=== PATIENT | male | born 1995 | race Caucasian/White ===

== ENCOUNTER 2019-04-04 13:34 | Emergency (ER) | payer SELFPAY ==
[2019-04-04 13:45] VITALS: BP 112/59
--- NOTE | 2019-04-04 14:24 | ED Physician Documentation ---
General Adult - HISTORIAN Historian: patient - HPI Stated Complaint: Well Exam Chief Complaint: General Adult Additional Information: Patient presents to ED asking for check up before he goes back to work. Patient had upper respiratory symptoms starting on 03/29/19 with cough, congestion, bodyaches, fever (104.5). Patient states his last fever was on 04/01/19. 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 Patient states most of his symptoms have resolved except for a lingering runny nose. Onset: days ago (5) Timing: gone now Severity: mild - ROS CONST: fever EYES/ENT: sore throat, nasal drainage, nasal congestion CVS/RESP: cough GI/: none MS/SKIN/LYMPH: none NEURO/PSYCH: headache - PAST HX Past History: none Other History: none Allergies/Adverse Reactions: Allergies Allergy/AdvReac Type Severity Reaction Status Date / Time latex Allergy Verified 04/04/19 13:45 Penicillins Allergy Verified 04/04/19 13:45 Home Medications: Ambulatory Orders Medication Instructions Recorded NK 04/04/19 - SOCIAL HX Smoking History: non-smoker Alcohol Use: none Drug Use: none - FAMILY HX Family History: No - VITAL SIGNS Vital Signs: Vital Signs Temp Pulse Resp BP Pulse Ox 98.4 F 76 15 112/59 97 04/04/19 13:35 04/04/19 13:35 04/04/19 13:35 04/04/19 13:35 04/04/19 13:35 - REVIEWED ASSESSMENTS Nursing Assessment Reviewed: Yes Vitals Reviewed: Yes General Adult Physical Exam - PHYSICAL EXAM GENERAL APPEARANCE: no distress EENT: ENT inspection normal NECK: supple. No: lymphadenopathy RESPIRATORY: no resp distress, chest non-tender, breath sounds normal CVS: reg rate & rhythm, heart sounds normal ABDOMEN: soft, normal bowel sounds BACK: normal inspection SKIN: warm/dry, normal color EXTREMITIES: non-tender NEURO: oriented X3, motor nml, sensation nml, mood/affect nml Discharge Clincal Impression: Well adult exam Referrals: Primary Doctor,No [Primary Care Provider] - 2 Days Additional Instructions: 1. Follow up with PCP as needed. 2. Return to ER for any new symptoms Condition: Stable Disposition: 01 HOME, SELF-CARE Decision to Admit: NO Date of Decison to Admit: 04/04/19 Decision Time: 14:27
== END 2019-04-04 14:33 | disposition home or self-care (01) ==
LOC: ED 13:34
DX: Z00.00 Encounter for general adult medical examination without abnormal findings (principal)
CPT/HCPCS: 99281; 99282